=== PATIENT | female | born 1985 | race African-American/Black ===

== ENCOUNTER 2016-10-24 08:31 | Emergency (ER) | payer MEDICAID ==
[~2016-10-24] VITALS: Ht 162.6 cm; Wt 106.1 kg
[~2016-10-24 08:31] MED LIST: ACETTAB89
[2016-10-24 10:11] LABS: Urine Bilirubin Negative (Negative); Urine Color Yellow (Yellow); Urine Glucose Normal (Normal); Urine Ketone Negative (Negative); Urine Nitrite Negative (Negative); Urine RBC 2 /hpf (0 - 4); Urine Squamous Epithelial Cell FEW /hpf (<5); Urine Urobilinogen Normal (Negative)
[2016-10-24 10:12] LABS: Urine Blood 1+ /uL (Negative)
[2016-10-24] MEDS ORDERED: SODIUM CHLORIDE 0.9% 1,000 ML IVB ONE (10:21)
[2016-10-24 10:35] LABS: Basophils # (auto) 0 uL; Basophils % (auto) 0.4 % (0.0-2.0); Eosinophils # (auto) 0.1 uL; Eosinophils % (auto) 2.8 % (0.0-7.0); Hematocrit 39.4 % (36.0-46.0); Hemoglobin 13.1 g/dL (12.2-16.2); Lymphocytes # (auto) 1.1 uL; Mean Corpuscular Hemoglobin 28.1 pg (28.0-32.0); Mean Corpuscular Hgb Conc. 33.3 g/dL (32.0-36.0); Mean Corpuscular Volume 84.5 fL (80.0-100.0); Mean Platelet Volume 9.2 fL (7.4-10.4); Monocytes # (auto) 0.5 uL; Monocytes % (auto) 11.8 % (0.0-12.0); Neutrophils # (auto) 2.7 uL; Platelet Count (auto) 329 10^3/uL (140-450); White Blood Cell 4.4 10^3/uL (4.4-10.8)
[2016-10-24 10:47] LABS: Albumin 3.7 g/dL (3.4-5.0); BUN/Creatinine Ratio 11.9; Bilirubin, Total 0.5 mg/dL (0.2-1.0); Calcium 8.9 mg/dL (8.5-10.1); Magnesium 2.2 mg/dL (1.6-2.6); Potassium 3.8 mmol/L (3.5-5.1); Total Protein 7.8 g/dL (6.4-8.2)
[2016-10-24 12:03] VITALS: BP 146/69
== END 2016-10-24 13:21 | disposition home or self-care (01) ==
LOC: ER 08:31
DX: O23.41 Unspecified infection of urinary tract in pregnancy, first trimester (principal); O26.851 Spotting complicating pregnancy, first trimester; Z88.1 Allergy status to other antibiotic agents; Z3A.01 Less than 8 weeks gestation of pregnancy
CPT/HCPCS: 36415; 76801; 76817; 80053; 81001; 83735; 84702; 85025; 96360; 99285; J7030

== ENCOUNTER 2016-10-28 14:47 | Emergency (ER) | payer MEDICAID ==
[~2016-10-28] VITALS: Ht 165.1 cm; Wt 81.6 kg
[2016-10-28] MEDS ORDERED: SODIUM CHLORIDE 0.9% 1,000 ML IVB ONE (14:51)
[2016-10-28 15:25] LABS: Basophils # (auto) 0 uL; Basophils % (auto) 0.9 % (0.0-2.0); CONDITION AutoValidated; Eosinophils # (auto) 0.1 uL; Eosinophils % (auto) 1.8 % (0.0-7.0); Hematocrit 37.2 % (36.0-46.0); Hemoglobin 12.3 g/dL (12.2-16.2); Lymphocytes # (auto) 1.2 uL; Lymphocytes % (auto) 22.7 % (10.0-50.0); Mean Corpuscular Hemoglobin 28.1 pg (28.0-32.0); Mean Corpuscular Hgb Conc. 33.1 g/dL (32.0-36.0); Mean Corpuscular Volume 84.9 fL (80.0-100.0); Monocytes # (auto) 0.3 uL; Monocytes % (auto) 6.1 % (0.0-12.0); Neutrophils # (auto) 3.6 uL; Neutrophils % (auto) 68.5 % (37.0-80.0); Platelet Count (auto) 287 10^3/uL (140-450); Red Cell Distribution Width 13.9 % (11.6-16.0); White Blood Cell 5.3 10^3/uL (4.4-10.8)
[2016-10-28 15:42] LABS: INR 0.93 (0.9-1.15); Partial Thromboplastin Time 26.7 sec (22.64-33.71); Prothrombin Time 10.1 sec (9.37-12.3)
[2016-10-28 15:45] LABS: Albumin 3.6 g/dL (3.4-5.0); BUN/Creatinine Ratio 19.2; Bilirubin, Total 0.3 mg/dL (0.2-1.0); Calcium 8.6 mg/dL (8.5-10.1); Total Protein 7.2 g/dL (6.4-8.2)
[2016-10-28 19:15] VITALS: BP 114/56
== END 2016-10-28 19:58 | disposition home or self-care (01) ==
LOC: ER 14:47
DX: O03.9 Complete or unspecified spontaneous abortion without complication (principal); Z3A.09 9 weeks gestation of pregnancy; Z88.1 Allergy status to other antibiotic agents
CPT/HCPCS: 36415; 76801; 76817; 80053; 84702; 85025; 85610; 85730; 94761; 96360; 96361; 99285; J7030

== ENCOUNTER 2017-11-29 11:44 | Emergency (ER) | payer MEDICAID ==
[~2017-11-29] VITALS: Ht 162.6 cm; Wt 111.1 kg
[~2017-11-29 11:44] MED LIST changes: +ACE3T PO; +PREN-96 PO
[2017-11-29 12:17] LABS: Urine Bacteria MOD /hpf (None Seen); Urine Blood Negative /uL (Negative); Urine Specific Gravity 1.006 (1.001-1.035); Urine WBC 2 /hpf (0 - 5)
[2017-11-29 12:26] LABS: Alcohol, Urine < 3.0 mg/dL (0-5); Amphetamine Screen, Urine NEGATIVE (NEGATIVE); Barbiturate Scree,Urine NEGATIVE (NEGATIVE); Benzodiazephine Screen, Urine NEGATIVE (NEGATIVE); Cannabinoid Screen, Urine NEGATIVE (NEGATIVE); Cocaine Screen, Urine NEGATIVE (NEGATIVE); Opiate Scree,Urine NEGATIVE (NEGATIVE); Phencyclidine Screen, Urine NEGATIVE (NEGATIVE)
[2017-11-29 12:45] LABS: Basophils # (auto) 0 uL; Basophils % (auto) 0.5 % (0.0-2.0); Eosinophils # (auto) 0.1 uL; Hemoglobin 11.6 g/dL (12.2-16.2); Nucleated Red Blood Cells % 0.3 %
[2017-11-29 12:46] LABS: Eosinophils % (auto) 2.7 % (0.0-7.0); Hematocrit 35.3 % (36.0-46.0); Lymphocytes # (auto) 1.4 uL; Lymphocytes % (auto) 27.2 % (10.0-50.0); Mean Corpuscular Hemoglobin 26.8 pg (28.0-32.0); Mean Corpuscular Volume 81.4 fL (80.0-100.0); Monocytes # (auto) 0.6 uL; Neutrophils % (auto) 58.6 % (37.0-80.0); Platelet Count (auto) 266 10^3/uL (140-450); Red Blood Cells 4.34 10^6/uL (4.0-5.20); White Blood Cell 5.2 10^3/uL (4.4-10.8)
[2017-11-29 13:05] LABS: Alanine Aminotransferase 10 U/L (13-56); Albumin 2.6 g/dL (3.4-5.0); Alkaline Phosphatase 97 U/L (45-117); Anion Gap 10 (5-15); Aspartate Aminotransferase 9 U/L (15-37); BUN/Creatinine Ratio 8.9; Bilirubin, Total 0.3 mg/dL (0.2-1.0); Blood Urea Nitrogen 5 mg/dL (7-18); Calcium 8.6 mg/dL (8.5-10.1); Carbon Dioxide 21 mmol/L (21-32); Chloride 105 mmol/L (98-107); GFR African American 160 mL/min; GFR Non-African American 133 mL/min; Glucose 75 mg/dL (74-106); Sodium 136 mmol/L (136-145); Total Protein 6.8 g/dL (6.4-8.2)
[2017-11-29 14:19] VITALS: BP 126/67
== END 2017-11-29 14:42 | disposition home or self-care (01) ==
LOC: ER 11:44
DX: O26.893 Other specified pregnancy related conditions, third trimester (principal); R07.89 Other chest pain; O23.43 Unspecified infection of urinary tract in pregnancy, third trimester; Z3A.37 37 weeks gestation of pregnancy; Z88.0 Allergy status to penicillin; Z88.1 Allergy status to other antibiotic agents
CPT/HCPCS: 36415; 80053; 80307; 81001; 84484; 85025; 93005

== ENCOUNTER 2017-12-13 21:05 | Inpatient (IN) | payer MEDICAID ==
[~2017-12-13] VITALS: Ht 162.6 cm; Wt 112.5 kg
[~2017-12-13 21:05] MED LIST changes: -ACE3T PO; -ACETTAB89
[2017-12-13] MEDS ORDERED: LACTATED RINGER'S 1,000 ML IV SCH (23:03)
[2017-12-13] MEDS ORDERED: PHISODERM TOP SOLN 240ML BTL TOP ONE (23:04)
[2017-12-13] MEDS ORDERED: LIDOCAINE 2% (LOCAL ANESTH.) PF 5ml SDV ONE (23:04)
[2017-12-13] MEDS ORDERED: METHYLERGONOVINE MALEATE 0.2 MG/ML AMP IM ONE (23:04)
[2017-12-13] MEDS ORDERED: DERMOPLAST 60ML BOTTLE TOP ONE (23:04)
[2017-12-13] MEDS ORDERED: CLINDAMYCIN 900MG IV 50 ML IV ONE (23:04)
[2017-12-13] MEDS ORDERED: LACT. RINGERS/OXYTOCIN 20UNITS 1,000 ML IV ONE (23:04)
[2017-12-13] MEDS ORDERED: PHISODERM TOP SOLN 240ML BTL TOP PRN (23:15)
[2017-12-13] MEDS ORDERED: LIDOCAINE 2% (LOCAL ANESTH.) PF 5ml SDV ID ONE (23:15)
[2017-12-13] MEDS ORDERED: WITCH HAZEL-GLYCERIN PAD TOP PRN (23:15)
[2017-12-13] MEDS ORDERED: METHYLERGONOVINE MALEATE 0.2 MG/ML AMP IM PRN (23:15)
[2017-12-13] MEDS ORDERED: NALBUPHINE HCL 10 MG/1ml INJECTION IV PRN (23:15)
[2017-12-13] MEDS ORDERED: DERMOPLAST 60ML BOTTLE TOP PRN (23:15)
[2017-12-13 23:42] LABS: Eosinophils # (auto) 0.1 uL; Mean Corpuscular Volume 80.7 fL (80.0-100.0); Neutrophils # (auto) 3.1 uL; White Blood Cell 5.8 10^3/uL (4.4-10.8)
[2017-12-13 23:43] LABS: Basophils # (auto) 0 uL; Basophils % (auto) 0.7 % (0.0-2.0); Hemoglobin 12.2 g/dL (12.2-16.2); Lymphocytes % (auto) 33.7 % (10.0-50.0); Mean Corpuscular Hemoglobin 26.6 pg (28.0-32.0); Monocytes # (auto) 0.6 uL; Monocytes % (auto) 10.6 % (0.0-12.0); Platelet Count (auto) 245 10^3/uL (140-450); Red Blood Cells 4.59 10^6/uL (4.0-5.20); Red Cell Distribution Width 14.4 % (11.8-14.3)
[2017-12-13 23:58] LABS: Albumin 2.6 g/dL (3.4-5.0); BUN/Creatinine Ratio 6.8; Calcium 9.1 mg/dL (8.5-10.1); Potassium 3.5 mmol/L (3.5-5.1)
[2017-12-14 00:01] LABS: Bilirubin, Total 0.3 mg/dL (0.2-1.0)
[2017-12-14 00:02] LABS: INR 0.86 (0.9-1.15); Partial Thromboplastin Time 28.5 sec (23.78-33.04); Prothrombin Time 9.3 sec (9.27-12.13)
[2017-12-14] MEDS ORDERED: LACT. RINGERS/OXYTOCIN 20UNITS 500 ML IV ONE (00:23)
[2017-12-14] MEDS: IBUPROFEN 600 MG TAB PO PRN ×2 (01:52→23:08)
[2017-12-14] MEDS: ACETAMINOPHEN 325 MG TAB PO PRN ×2 (03:14→10:39)
[2017-12-14 03:19] VITALS: BP 94/56
[2017-12-14 03:21] LABS: Urine Bacteria FEW /hpf (None Seen); Urine Blood 3+ /uL (Negative); Urine Mucus FEW (None Seen); Urine Specific Gravity 1.012 (1.001-1.035); Urine WBC 7 /hpf (0 - 5)
[2017-12-14 04:39] LABS: Alcohol, Urine < 3.0 mg/dL (0-5); Amphetamine Screen, Urine NEGATIVE (NEGATIVE); Barbiturate Scree,Urine NEGATIVE (NEGATIVE); Benzodiazephine Screen, Urine NEGATIVE (NEGATIVE); Cannabinoid Screen, Urine NEGATIVE (NEGATIVE); Cocaine Screen, Urine NEGATIVE (NEGATIVE); Opiate Scree,Urine NEGATIVE (NEGATIVE); Phencyclidine Screen, Urine NEGATIVE (NEGATIVE)
[2017-12-14] MEDS ORDERED: CLINDAMYCIN 900MG IV 50 ML IV SCH (06:00)
[2017-12-14 06:45] VITALS: BP 108/59
[2017-12-14 11:00] VITALS: BP 115/68
[2017-12-14 15:00] VITALS: BP 105/57
[2017-12-14 19:00] VITALS: BP 135/75
[2017-12-14 23:00] VITALS: BP 126/79
[2017-12-15 03:00] VITALS: BP 106/58
[2017-12-15 06:45] VITALS: BP 111/73
[2017-12-15] MEDS: ACETAMINOPHEN 325 MG TAB PO PRN (07:42)
[2017-12-15 08:09] LABS: RPR Non Reactive (Non Reactive)
[2017-12-15 11:07] VITALS: BP 105/65
== END 2017-12-15 12:00 | disposition home or self-care (01) | DRG 560 ==
LOC: LDRP 21:05 → OBSVTOIN 21:05 → LDRP 12-14 01:52
PROVIDERS: ADMIT Obstetrics & Gynecology; ATTEND Obstetrics & Gynecology
PROC: 10E0XZZ Delivery of Products of Conception, External Approach (ICD-10-PCS; principal; 2017-12-13)
DX: O62.3 Precipitate labor (principal); O99.824 Streptococcus B carrier state complicating childbirth; O69.81X0 Labor and delivery complicated by cord around neck, without compression, not applicable or unspecified; Z3A.39 39 weeks gestation of pregnancy; Z37.0 Single live birth; Z88.1 Allergy status to other antibiotic agents
CPT/HCPCS: 36415; 59025; 59409; 76818; 80053; 80307; 81001; 81002; 85025; 85610; 85730; 86592; 86703; 86762; 86850; 86900; 86901; 87340; 96365; 96366; J2001; J2590; J3490

== ENCOUNTER 2018-09-15 11:40 | Observation (INO) | payer MEDICAID ==
[~2018-09-15] VITALS: Ht 165.1 cm; Wt 109.8 kg
[2018-09-15] MEDS ORDERED: LACTATED RINGER'S 1,000 ML IV ONE (12:18)
== END 2018-09-15 15:35 | disposition home or self-care (01) | DRG 566 ==
LOC: LDRP 11:40
PROVIDERS: ADMIT Specialist; ATTEND Specialist
DX: O99.283 Endocrine, nutritional and metabolic diseases complicating pregnancy, third trimester (principal); E86.0 Dehydration; O26.893 Other specified pregnancy related conditions, third trimester; R51 Headache; Z3A.32 32 weeks gestation of pregnancy
CPT/HCPCS: 59025; 81002; 96360; G0378; 96361; 96365; 96366

== ENCOUNTER 2018-09-18 08:48 | Observation (INO) | payer MEDICAID ==
[2018-09-18] MEDS ORDERED: LACTATED RINGER'S 1,000 ML IV ONE (09:23)
[2018-09-18] MEDS ORDERED: ONDANSETRON HCL 4 MG/2 ML VIAL IV ONE (09:30)
[2018-09-18 10:09] LABS: Urine Bacteria FEW /hpf (None Seen); Urine Blood Negative /uL (Negative); Urine Hyaline Cast FEW /lpf (0 - 2); Urine Mucus FEW (None Seen); Urine Specific Gravity 1.024 (1.001-1.035); Urine WBC 7 /hpf (0 - 5)
[2018-09-18 10:10] LABS: Basophils # (auto) 0 uL; Basophils % (auto) 0.2 % (0.0-2.0); Eosinophils # (auto) 0 uL; Eosinophils % (auto) 0.4 % (0.0-7.0); Hemoglobin 13.2 g/dL (12.2-16.2); Monocytes # (auto) 0.7 uL; Neutrophils # (auto) 5.8 uL; Nucleated Red Blood Cells % 0.1 %
[2018-09-18 10:12] LABS: Hematocrit 39.8 % (36.0-46.0); Lymphocytes # (auto) 0.9 uL; Lymphocytes % (auto) 12.3 % (10.0-50.0); Mean Corpuscular Hemoglobin 26.9 pg (28.0-32.0); Mean Corpuscular Hgb Conc. 33.1 g/dL (32.0-36.0); Mean Corpuscular Volume 81.3 fL (80.0-100.0); Monocytes % (auto) 9.5 % (0.0-12.0); Neutrophils % (auto) 77.6 % (37.0-80.0); Platelet Count (auto) 268 10^3/uL (140-450); Red Cell Distribution Width 13.7 % (11.8-14.3); White Blood Cell 7.5 10^3/uL (4.4-10.8)
[2018-09-18 10:27] LABS: Albumin 3.2 g/dL (3.4-5.0); Calcium 9.8 mg/dL (8.5-10.1); Potassium 3.8 mmol/L (3.5-5.1)
[2018-09-18 10:27] LABS: Alcohol, Urine < 3.0 mg/dL (0-5); Amphetamine Screen, Urine NEGATIVE (NEGATIVE); Barbiturate Scree,Urine NEGATIVE (NEGATIVE); Benzodiazephine Screen, Urine NEGATIVE (NEGATIVE); Cannabinoid Screen, Urine NEGATIVE (NEGATIVE); Cocaine Screen, Urine NEGATIVE (NEGATIVE); Opiate Scree,Urine POSITIVE (NEGATIVE); Phencyclidine Screen, Urine NEGATIVE (NEGATIVE)
[2018-09-18 10:29] LABS: BUN/Creatinine Ratio 7.7
[2018-09-18 10:32] LABS: Bilirubin, Total 0.5 mg/dL (0.2-1.0); Total Protein 8.4 g/dL (6.4-8.2)
== END 2018-09-18 11:18 | disposition home or self-care (01) | DRG 566 ==
LOC: LDRP 08:48
PROVIDERS: ADMIT Obstetrics & Gynecology; ATTEND Obstetrics & Gynecology
DX: O21.2 Late vomiting of pregnancy (principal); E86.0 Dehydration; O99.283 Endocrine, nutritional and metabolic diseases complicating pregnancy, third trimester; Z3A.33 33 weeks gestation of pregnancy
CPT/HCPCS: 36415; 59025; 80053; 80307; 81001; 81002; 85025; 87086; 96374; G0378; J2405